=== PATIENT | female | born 1955 ===

== ENCOUNTER 2021-10-29 08:09 | Outpatient (CLI) | payer OTHER | END 2021-10-29 08:21 | disposition home or self-care (01) | LOC: TOM 08:09 | PROVIDERS: ATTEND Specialist | DX: R10.31 Right lower quadrant pain (principal); M51.87 Other intervertebral disc disorders, lumbosacral region; M25.551 Pain in right hip ==

== ENCOUNTER 2022-03-06 10:33 | Outpatient (CLI) | payer OTHER | END 2022-03-06 10:48 | disposition home or self-care (01) | LOC: PPH VACUNA 10:33 | PROVIDERS: ATTEND Emergency Medicine Pediatric Emergency Medicine | DX: Z23 Encounter for immunization (principal) ==

== ENCOUNTER 2022-11-11 14:16 | Outpatient (CLI) | payer OTHER | END 2022-11-18 14:21 | disposition home or self-care (01) | LOC: SONOGRAMA 14:16 | PROVIDERS: ATTEND Pathology Anatomic Pathology | DX: D34 Benign neoplasm of thyroid gland (principal); E04.9 Nontoxic goiter, unspecified; E03.8 Other specified hypothyroidism ==

== ENCOUNTER 2023-04-25 10:27 | Outpatient (CLI) | payer OTHER | END 2023-04-25 10:30 | disposition home or self-care (01) | LOC: RAD 10:27 | PROVIDERS: ATTEND Physical Medicine & Rehabilitation | DX: M54.17 Radiculopathy, lumbosacral region (principal) ==